=== PATIENT | male | born 1965 | race Caucasian/White ===

== ENCOUNTER 2025-02-19 12:19 | Emergency (ER) | payer BC, SELFPAY ==
[2025-02-19 12:24] VITALS: BP 159/79; PULSE 72; TEMP 37.3; O2SAT 98; BMI 36.9
--- NOTE | 2025-02-19 12:31 | CT_ITS ---
[address] [address] Patient Name: OSVALDO CONTI MRN: [id number] date: 1965 Sex: M Assigned Patient Location: ER Current Patient Location: ER Accession/Order Number: [id number] Exam Date: 02/19/2025 13:05 Report Date: 02/19/2025 13:13 At the request of: DONALDO FERREIRA NP Procedure: CT abdomen pelvis wo con CT abdomen pelvis wo con 02/19/2025 12:53 PM SIGNS AND SYMPTOMS: Left flank pain TECHNIQUE: Multidetector ct axial images of the abdomen and pelvis were obtained without IV contrast. Multiplanar reformats were performed and reviewed to further define anatomy and possible pathology. CT was performed with one or more of the following dose reduction techniques: Automated exposure control, adjustment of the mA and/or kV according to patient size, or use of iterative reconstruction technique. COMPARISON: None. FINDINGS: Lower Chest: Atherosclerotic changes are noted in the coronary arteries and thoracic aorta. ABDOMEN: Liver: Within normal limits. Bile Ducts: Normal caliber. Gallbladder: No calcified gallstones. Normal caliber wall. Pancreas: Within normal limits. Spleen: Within normal limits. Adrenals: Within normal limits. Kidneys: Within normal limits. Pelvis: Reproductive Organs: No pelvic masses. Ureters: Within normal limits. Bladder: Within normal limits. Bowel: Uncomplicated colonic diverticula are noted. There is no evidence of bowel obstruction. There is a normal appendix in the right lower quadrant. Mesenteric Lymph Nodes: No enlarged mesenteric lymph nodes. Peritoneum: No ascites or free air, no fluid collection. Vessels: Atherosclerotic changes are noted in the abdominal aorta and its branches. Retroperitoneum: Within normal limits. Abdominal Wall: Within normal limits. Bones: Degenerative changes are noted in the lumbar spine. Degenerative changes are noted in the hips and sacroiliac joints. CT/CT abdomen pelvis wo con IMPRESSION: No bowel obstruction or obstructive uropathy. Uncomplicated colonic diverticula are noted. No renal, ureteral, or bladder stones. Impression dictated by: Rufino Wesley M.D. 02/19/2025 1:13 PM Dictation Location: [place] [address] Electronically authenticated by: [id number] Y Date: 02/19/2025 13:13
--- NOTE | 2025-02-19 12:31 | ECG_ITS ---
[facility] Test Date: 2025-02-19 Pat Name: OSVALDO CONTI Department: Room: - Gender: Male Director Life: : 1965 Requested By: [id number] Order Number: [id number] Reading MD: GEETA WAITE Measurements Intervals Lane Rate: 69 P: 77 KS: 154 QRS: 95 QRSD: 96 T: 72 QT: 398 QTc: 417 Interpretive Statements 1100 Sinus rhythm RSR pattern in V1 7102 Moderate right axis deviation 9130 borderline ECG No previous ECG available for comparison Electronically Signed On 02-22-2025 16:21:11 EDT by GEETA WAITE
--- OUTSIDE RECORDS SUMMARY | 2025-02-19 12:32 | XMS_ITS | Encounter Summary ---
Author Organization [facility] Address [address] [place] [address] Care Team Providers Care Acetaldehyde Converter Operator Name Role Phone Unallocated, Noms Provider Primary Care Provi [facility] Encounter Details Date Type Department Care Team (Late st Contact Info) Description 02/07/2025 External Result Encounter [facility] External Department Unsolicited Vicente Queen MD [address] [address] Social History Tobacco Use Types Packs/Day Years Used Date Smoking Tobacco: Never Smokeless Tobacco: Never Alcohol Use Standard Drinks/Week Comments Never 0 (1 standard drink = 0.6 oz pur e alcohol) PHQ-2 Answer Date Recorded Patient Health Questionnaire-2 Score 0 02/01/2025 Sex and Gender Information Value Date Recorded Sex Assigned at Not on file Legal Sex Male 7:23 PM EDT Gender Identity Not on file Sexual Orientation Not on file documented as of this encounter Plan of Treatment Not on file documented as of this encounter Procedures Procedure Name Priority Date/Time Associated Diagnosis Comments THYROID ANTIBODIES TPO+TG AB Routine 02/07/2025 1:51 PM EDT THYROID STIMULATING IMMUNOGLOBULIN Routine 02/07/2025 1:51 PM EDT documented in this encounter Results * Thyroid stimulating immunoglobulin (02/07/2025 1:51 PM EDT) THYROID STIMULATING IMMUNOGLOB <0.10 0.00 - 0.55 02/09/2025 4:09 PM EDT [facility] Comment: Performed at: [address] [id number] R Developer: Alejandro Nixon MD, Phone: [phone] Other Topography unknown / Unknown 02/07/2025 1:51 PM EDT 02/07/2025 1:52 PM EDT Vicente Queen MD LAB BLOOD ORDERABLES Final R esult Performing Organization Address City/[facility]/ZIP Co de Phone Number [facility] [address] [place] [address], * THYROID ANTIBODIES TPO+TG AB (02/07/2025 1:51 PM EDT) Pathologist [facility] THYROID PEROXIDASE ANTIBODIES <9 0 - 34 02/08/2025 3:08 PM EDT [facility] ANTITHYROGLOBULIN AB 1.3 0.0 - 0.9 0 08/2024 3:08 PM EDT [facility] Comment: Thyroglobulin Antibody measured by Urmila Vu Methodology It should be noted that the presence of thyroglobulin antibodies may not be pathogenic nor diagnostic, especially at very low levels. The assay lehr stripper has found that four percent of individuals without evidence of thyroid disease or autoimmunity will have positive TgAb levels up to 4 IU/mL. Performed at: [address] [id number] R Developer: Macho Kapoor PhD, Phone: [phone] Other Topography unknown / Unknown 02/07/2025 1:51 PM EDT 02/07/2025 1:52 PM EDT Vicente Queen MD [facility] Final Result Performing Organization Address [facility] Co de Phone Number [facility] [address] [place] [address], documented in this encounter Visit Diagnoses Not on filedocumented in this encounter Care Teams Acetaldehyde Converter Operator Relationship Specialty Start Date End Date Unallocated, Noms Provider, MD Mahesh AMAYA [place], [place] [id number] PCP - General Family Medicine 05/24/24 documented as of this encounter
--- OUTSIDE RECORDS SUMMARY | 2025-02-19 12:32 | XMS_ITS | Encounter Summary ---
Author Organization [facility] Address [address] [place] [address] Care Team Providers Care Prototype Deicer Assembler Name Role Phone Vicente Queen MD Unavailable [phone] Vicente Queen MD Primary Care Provider [phone] Unallocated, Noms Provider Primary Care Provi steffen Encounter Details Date Type Department Care Team (Late st Contact Info) Description 04/03/2023 Abstract [facility] [address] [place] [id number] Beba Rodgers MD Social History Tobacco Use Types Packs/Day Years Used Date Smoking Tobacco: Never Assessed Sex and Gender Information Value Date Recorded Sex Assigned at Not on file Legal Sex Male 7:23 PM EDT Gender Identity Not on file Sexual Orientation Not on file documented as of this encounter Plan of Treatment Not on file documented as of this encounter Visit Diagnoses Not on filedocumented in this encounter Care Teams Prototype Deicer Assembler Relationship Specialty Start Date End Date Vicente Queen MD 112 [facility] [address] [place] [address] PCP - Medical [place] [employer] 01/09/23 10/18/23 Vicente Queen MD [address] [address] PCP - General Family Medicine 12/17/22 05/23/24 Unallocated, Noms Estevan, [place] [address] PCP - General Family Medicine 05/24/24 documented as of this encounter
--- OUTSIDE RECORDS SUMMARY | 2025-02-19 12:32 | XMS_ITS | Encounter Summary ---
Author Organization [facility] Address [address] [place] [address] Care Team Providers Care Acute Specialist Name Role Phone Unallocated, Noms Provider Primary Care Provi steffen Reason for Visit * Reason Onset Date Comments Results 02/14/2025 Encounter Details Date Type Department Care Team (Late st Contact Info) Description 02/14/2025 Telephone [facility] 100 [address] [facility] [address] [place] [address] Vicente Queen MD 112 [facility] [address] [place] [address] Results Social History Tobacco Use Types Packs/Day Years [...] on file documented as of this encounter Miscellaneous Notes * Telephone Encounter - Micki Sevilla MA - 02/15/2025 3:38 PM EDT UA was negative. Richard said according to the company her insurance is affective but she is still waiting to hear back on numbers and who is covered etc. She stated that as soon as she hears she will give the office a call so [facility] can order testing. * Telephone Encounter - Micki Sevilla MA - 02/14/2025 3:40 PM EDT Called over to [facility]. The chemical laboratory technician looked into the orders and the system as this was all drawn in the outpatient lab outside the hospital. She stated that it was cancelled by the person who bisi it because they stated it was the wrong test ordered but then she asked me to hold so she could see what was going on. She came back on and asked if we were looking for the path review. I advised her yes. She stated the assistant technician was looking through the slides to see if it was still there. She put me back on hold and then came back and stated that the tech found the slide, she was going to reorderthe test and have the pathologist read it tomorrow. * Telephone Encounter - Meseret Tyler - 02/14/2025 2:57 PM EDT Vipul called asking about his lab results. He states he continues to feel bad ,worse than when he wasin for his visit. He also wanted to ask if Dr. Queen thought it may be low testosterone? He asks for a call back when results are in. documented in this encounter Plan of Treatment Not on file documented as of this encounter Visit Diagnoses Not on filedocumented in this encounter Care Teams Acute Specialist Relationship Specialty Start Date End Date Unallocated, Noms Provider, [place] [address] PCP - General Family Medicine 05/24/24 documented as of this encounter
--- OUTSIDE RECORDS SUMMARY | 2025-02-19 12:32 | XMS_ITS | Clinical Summary ---
Author Organization [facility] Address [address] [place] [address] Care Team Providers Care Polisher And Buffer Name Role Phone Unallocated, N[facility] Provider Primary Care Provi steffen Allergies No known active allergies Medications nebivolol (Bystolic) 5 MG tablet Take 5 mg by mouth in the morning. 06/07/2024 Active amLODIPine (Norvasc) 10 MG tablet Take 10 mg by mouth Daily 01/26/2025 Active atorvastatin (Lipitor) 40 MG tablet Take 40 mg by mouth at bedtime 01/26/2025 Active dofetilide (Tikosyn) 500 MCG capsule Take 500 mcg by mouth in the morning and 500 mcg before bedtime. 01/26/2025 Active nitroglycerin (Nitrostat) 0.[address] 0.4 mg under the tongue every 5 (five) minutes if needed 01/26/2025 Active Xarelto 20 MG tablet Take 20 mg by mouth Daily 01/26/2025 Active ezetimibe (Zetia) 10 MG tablet Take 10 mg by mouth Daily Active Active Problems Problem Noted Date Diagnosed Date Abnormal neutrophil count 02/07/2025 Persistent atrial fibrillation 01/12/2024 Benign essential hypertension 01/12/2024 Benign prostatic hyperplasia 01/12/2024 Coronary arteriosclerosis in wainwright artery 01/11 CPAP (continuous positive airway pressure) depidania manuel 01/12/2024 Gastroesophageal reflux disease without esophagi tis 01/12/2024 H/O heart artery stent 01/12/2024 Hypertensive retinopathy 01/12/2024 Hypokalemia 01/12/2024 Ischemic optic neuropathy 01/12/2024 Left ventricular systolic dysfunction (LVSD) 10/2023 Mixed hyperlipidemia 01/12/2024 Myopia of both eyes 01/12/2024 Non morbid obesity due to excess calories 2023 Nuclear senile cataract 01/12/2024 Obstructive sleep apnea syndrome 01/12/2024 Basal cell carcinoma (BCC) of skin of face 08/27 Pseudopolyp of sigmoid colon without complicatio n 01/28/2018 Resolved Problems Problem Noted Date Diagnosed Date Resolved Date Atrial fibrillation with RVR 01/12/2024 02/03/2025 Encounters Date Type Department Care Team Description 02/14/2025 Telephone [facility] [address] [facility] [address] [place] [address] Vicente Queen MD Results 02/07/2025 External Result Encounter [facility] External Department Unsolicited Vicente Queen MD 02/07/2025 External Result Encounter [facility] External Department Unsolicited Vicente Queen MD 02/07/2025 External Result Encounter [facility] External Department Unsolicited Vicente Queen MD 02/07/2025 Orders Only [facility] [address] [facility] [address] [place] [address] Vicente Queen MD Other elevated white blood cell (WBC) count (Primary Dx); Abnormal thyroid function test; Chronic fatigue 02/03/2025 3:30 PM EDT Office Visit [facility] [address] [facility] [address] [place] [address] Vicente Queen MD Encounter for wellness examination in adult; Advance directive discussed with patient; Screening for diabetes mellitus (DM); Mixed hyperlipidemia ; Non-compliant patient; Morbid (severe) obesity due to excess calories ([facility]); Essential (primary) hypertension ; Body mass index (BMI) 35.0-35.9, adult 02/03/2025 Bamboo flowsheet [facility] [address] [facility] [address] [place] [address] Vicente Queen MD 02/03/2025 Travel 02/02/2025 Orders Only [facility] [address] [facility] [address] [place] [address] Vicente Queen MD 02/02/2025 Results Follow-Up [facility] [address] [facility] [address] [place] [address] Vicente Queen MD 02/01/2025 2:00 PM EDT Office Visit [facility] [address] [place] [address] Vicente Queen MD Chronic fatigue (Primary Dx); Shortness of breath; Benign essential hypertension 02/01/2025 12:30 PM EDT Ancillary Procedure [facility] [address] [place] [address] Shortness of breath 02/01/2025 Bamboo flowsheet [facility] [address] [facility] [address] [place] [address] Vicente uQeen MD 02/01/2025 Travel 01/24/2025 Orders Only [facility] [address] [facility] [address] [place] [address] Roel Micki, [place] 12/01/2024 Clinisync Result Encounter [facility] External Department Unsolicited Provider, Generic External Data from Last 3 Months Immunizations Immunization Administration Dates Next Due Tdap 09/19/2023,05/16/2020 Social History Tobacco Use Types Packs/Day Years Used Date Smoking Tobacco: Never Smokeless Tobacco: Never Tobacco Cessation:Counseling Given: Yes Alcohol Use Standard Drinks/Week Comments Never 0 (1 standard drink = 0.6 oz pur e alcohol) PHQ-2 Answer Date Recorded Patient Health Questionnaire-2 Score 0 02/01/2025 Sex and Gender Information Value Date Recorded Sex Assigned at Not on file Legal Sex Male 7:23 PM EDT Gender Identity Not on file Sexual Orientation Not on file Last Filed Vital Signs Vital Sign Reading Time Taken Comments Blood Pressure 130/78 02/03/2025 3:26 PM EDT Pulse 73 02/03/2025 3:26 PM EDT Temperature - - Respiratory Rate - - Oxygen Saturation 97% 02/03/2025 3:26 PM EDT Inhaled Oxygen Concentration - - Weight 114 kg (251 lb) 02/03/2025 3:26 PM EDT Height 179.1 cm (5' 10.5 ) 02/03/2025 3:26 PM ED T Body Mass Index 35.51 02/03/2025 3:26 PM EDT Plan of Treatment Health Maintenance Due Date Last Done Comments CT Colonography 1964 FIT-DNA 1964 FIT 1964 FOBT 1965 Sigmoidoscopy 1964 Influenza Vaccine (#1) 2025 Colonoscopy 01/29/2028 01/28/2018 Colorectal Cancer Screening 01/29/2028 Procedures Procedure Name Priority Date/Time Associated Diagnosis Comments PATHOLOGIST SLIDE REVIEW ([facility]) Routine 02/07/2025 1:51 PM EDT THYROID STIMULATING IMMUNOGLOBULIN Routine 02/07/2025 1:51 PM EDT THYROID ANTIBODIES TPO+TG AB Routine 02/07/2025 1:51 PM EDT XR CHEST 2 VIEWS Routine 02/01/2025 3:54 PM EDT Shortness of breath T3, FREE Routine 02/01/2025 3:41 PM EDT TSH Routine 02/01/2025 3:41 PM EDT T4, FREE Routine 02/01/2025 3:41 PM EDT T3, TOTAL Routine 02/01/2025 3:41 PM EDT T3, REVERSE Routine 02/01/2025 3:41 PM EDT CBC (INCLUDES DIFF/PLT) Routine 02/01/2025 3:41 PM EDT Chronic fatigue Shortness of breath COMPREHENSIVE METABOLIC PANEL Routine 02/01/2025 3:41 PM EDT Chronic fatigue Benign essential hypertension NUCLEAR STRESS TEST EXERCISE (CARD) 12/01/2024 10:39 AM EDT COLONOSCOPY Routine 01/28/2018 12:00 PM EDT from Last 3 Months or Most Recently Relevant to Health Maintenance Results * THYROID ANTIBODIES TPO+TG AB (02/07/2025 1:51 PM EDT) THYROID PEROXIDASE ANTIBODIES <9 0 - 34 02/08/2025 3:08 PM EDT [facility] ANTITHYROGLOBULIN AB 1.3 0.0 - 0.9 08/2024 3:08 PM EDT [facility] Comment: Thyroglobulin Antibody measured by [employer] It should be noted that the presence of thyroglobulin antibodies may not be pathogenic nor diagnostic, especially at very low levels. The assay cut off machine helper has found that four percent of individuals without evidence of thyroid disease or autoimmunity will have positive TgAb levels up to 4 IU/mL. Performed at: [facility] [address] [id number] Curtain Feller Blindstitch: Macho Kapoor PhD, Phone: [phone] Other Topography unknown / Unknown 02/07/2025 1:51 PM EDT 02/07/2025 1:52 PM EDT Vicente Queen MD [facility] Final Result [facility] [address] [place], [place] [address] * PATHOLOGIST SLIDE REVIEW ([facility]) (02/07/2025 1:51 PM EDT) Pathologist [facility] PATHOLOGIST SLIDE REVIEW Ordered Path Review 02/14/2025 4:12 PM EDT [facility] Other Topography unknown / Unknown 02/07/2025 1:51 PM EDT 02/14/2025 3:44 PM EDT Vicente Queen MD LAB BLOOD ORDERABLES Final R esult Performing Organization Address [facility] Co de Phone Number [facility] [address] [place] [address], [facility] [address] [place] [address] * Thyroid stimulating immunoglobulin (02/07/2025 1:51 PM EDT) THYROID STIMULATING IMMUNOGLOB <0.10 0.00 - 0.55 02/09/2025 4:09 PM EDT [facility] Comment: Performed at: [facility] [address] [id number] Curtain Feller Blindstitch: Alejandro Nixon MD, Phone: [phone] Other Topography unknown / Unknown 02/07/2025 1:51 PM EDT 02/07/2025 1:52 PM EDT Vicente Queen MD LAB BLOOD ORDERABLES Final R esult Performing Organization Address [facility] Co de Phone Number [facility] [address] [place] [address], * XR chest 2 views (02/01/2025 3:54 PM EDT) Anatomical Region Laterality Modality Chest Radiographic Gracie ging 02/01/2025 7:17 PM EDT Narrative 02/01/2025 7:17 PM EDT XR CHEST 2 VIEWS Reason for exam: Shortness of breath for a few months Technique: PA and lateral view Findings: The heart size is normal. The pulmonary vascularity is unremarkable. The lungs are fully expanded and clear. No pleural abnormalities are seen. No evidence of mediastinal or hilar enlargement. The osseous structures are intact. No soft tissue abnormalities are seen. IMPRESSION: Normal chest x-ray. Dictated on: 02/01/2025 5:06 PM This report has been electronically signed and approved by the interpreting Radiologist. Procedure Note Rebel Abebe MD - 02/01/2025 XR CHEST 2 VIEWS Reason for exam: Shortness of breath for a few months Technique: PA and lateral view Findings: The heart size is normal. The pulmonary vascularity is unremarkable. Thelungs are fully expanded and clear. No pleural abnormalities are seen.No evidence of mediastinal or hilar enlargement. The osseous structuresare intact. No soft tissue abnormalities are seen. IMPRESSION: Normal chest x-ray. Dictated on: 02/01/2025 5:06 PM This report has been electronically signed and approved by theinterpreting Radiologist. us Vicente Queen MD IMG XR PROCEDURES Final Resu lt * (ABNORMAL) CBC and differential (02/01/2025 3:41 PM EDT) WHITE BLOOD CELL COUNT 13.0(H) 3.8 - 10.8 Thousand/ uL [facility] RED BLOOD CELL COUNT 4.43 4.20 - 5.80 Million/u L [facility] HEMOGLOBIN 14.8 13.2 - 17.1 g/dL [facility] HEMATOCRIT 43.4 38.5 - 50.0 % [facility] MCV 98.0 80.0 - 100.0 fL [facility] MCH 33.4(H) 27.0 - 33.0 pg [facility] MCHC 34.1 32.0 - 36.0 g/dL [facility] Comment: For adults, a slight decrease in the calculated MCHC value (in the range of 30 to 32 g/dL) is most likely not clinically significant; however, it should be interpreted with caution in correlation with other red cell parameters and the patient's clinical condition. RDW 11.6 11.0 - 15.0 % [facility] PLATELET COUNT 236 140 - 400 Thousand/ uL [facility] MPV 11.0 7.5 - 12.5 fL [facility] ABSOLUTE NEUTROPHILS 10,049(H) 1,500 - 7,800 cells/uL [facility] ABSOLUTE BAND NEUTROPHILS CANCELED 0 - 750 cells/uL [facility] Comment:Result canceled by t he ancillary. ABSOLUTE METAMYELOCYTES CANCELED 0 cells/uL [facility] Comment:Result canceled by t he ancillary. ABSOLUTE MYELOCYTES CANCELED 0 cells/uL [facility] Comment:Result canceled by t he ancillary. ABSOLUTE PROMYELOCYTES CANCELED 0 cells/uL [facility] Comment:Result canceled by t he ancillary. ABSOLUTE LYMPHOCYTES 1,781 850 - 3,900 cells/uL [facility] ABSOLUTE MONOCYTES 949 200 - 950 cells/uL [facility] ABSOLUTE EOSINOPHILS 169 15 - 500 cells/uL [facility] ABSOLUTE BASOPHILS 52 0 - 200 cells/uL [facility] ABSOLUTE BLASTS CANCELED 0 cells/uL [facility] Comment:Result canceled by t he ancillary. ABSOLUTE NUCLEATED RBC CANCELED 0 cells/uL [facility] Comment:Result canceled by t he ancillary. NEUTROPHILS 77.3 % [facility] BAND NEUTROPHILS CANCELED % [facility] Comment:Result canceled by t he ancillary. METAMYELOCYTES CANCELED % [facility] Comment:Result canceled by t he ancillary. CIPROFLOXICIN CANCELED % [facility] Comment:Result canceled by t he ancillary. PROMYELOCYTES CANCELED % [facility] Comment:Result canceled by t he ancillary. LYMPHOCYTES 13.7 % [facility] REACTIVE LYMPHOCYTES CANCELED 0 - 10 % [facility] Comment:Result canceled by t he ancillary. MONOCYTES 7.3 % [facility] EOSINOPHILS 1.3 % [facility] BASOPHILS 0.4 % [facility] BLASTS CANCELED % [facility] Comment:Result canceled by t he ancillary. NUCLEATED RBC CANCELED 0 /100 WBC [facility] Comment:Result canceled by t he ancillary. COMMENT(S) CANCELED [facility] Comment:Result canceled by t he ancillary. Blood Venous blood specimen / Unknown 02/01/2025 3:41 PM EDT 02/01/2025 3:42 PM EDT Narrative Resulting Agency Comment Performing Organization Information Site ID: QPT Name: [facility] Address: [address] [place] [address], [address] [place] [phone] Director: Samir Glass MD Vicente Queen MD LAB BLOOD ORDERABLES Final R esult [facility] * (ABNORMAL) T3, reverse (02/01/2025 3:41 PM EDT) T3 REVERSE, LC/MS/MS 30(H) 8 - 25 ng/dL [facility] Comment: This test was developed and its analytical performance characteristics have been determined by [facility] [place], [place]. It has not been cleared or approved by the U.S. Food and Drug Administration. This assay has been validated pursuant to the CLIA regulations and is used for clinical purposes. 02/01/2025 3:41 PM EDT 02/01/2025 3:42 PM EDT Narrative Resulting Agency Comment Performing Organization Information Site ID: AMD Name: [facility] [place] Address: [address] [place] [address] [place] [phone] Director: Luc Morin M.D.,PhD Vicente Queen MD LAB BLOOD ORDERABLES Final R esult Performing Organization Address [facility] Co de Phone Number [facility] * T3, free (02/01/2025 3:41 PM EDT) T3, FREE 3.8 2.3 - 4.2 pg/mL [facility] 02/01/2025 3:41 PM EDT 02/01/2025 3:42 PM EDT Narrative Resulting Agency Comment Performing Organization Information Site ID: QPT Name: [facility] Address: [address] [place] [address], [address] [place] [phone] Director: Samir Glass MD Vicente Queen MD LAB BLOOD ORDERABLES Final R esult Performing Organization Address [facility] de Phone Number [facility] * T3 (02/01/2025 3:41 PM EDT) T3, TOTAL 117 76 - 181 ng/dL [facility] 02/01/2025 3:41 PM EDT 02/01/2025 3:42 PM EDT Narrative Resulting Agency Comment Performing Organization Information Site ID: QPT Name: [facility] Address: [address] [place] [address], [address] [place] [phone] Director: Samir Glass MD Vicente Queen MD LAB BLOOD ORDERABLES Final R esult Performing Organization Address [facility] de Phone Number [facility] * TSH (02/01/2025 3:41 PM EDT) TSH 0.91 0.40 - 4.50 mIU/L [facility] 02/01/2025 3:41 PM EDT 02/01/2025 3:42 PM EDT Narrative Resulting Agency Comment Performing Organization Information Site ID: QPT Name: [facility] Address: [address] [place] [address], [address] [place] [phone] Director: Samir Glass MD Vicente Queen MD LAB BLOOD ORDERABLES Final R esult Performing Organization Address [facility] de Phone Number [facility] * T4, free (02/01/2025 3:41 PM EDT) T4, FREE 1.7 0.8 - 1.8 ng/dL [facility] 02/01/2025 3:41 PM EDT 02/01/2025 3:42 PM EDT Narrative Resulting Agency Comment Performing Organization Information Site ID: QPT Name: [facility] Address: [address] [place] [address], [address] [place] [phone] Director: Samir Glass MD Vicente Queen MD LAB BLOOD ORDERABLES Final R esult Performing Organization Address [facility] de Phone Number [facility] * Comprehensive metabolic panel (02/01/2025 3:41 PM EDT) [facility] Glucose 84 65 - 99 mg/dL [facility] Comment: Fasting reference interval BUN 14 7 - 25 mg/dL [facility] Creatinine 1.11 0.70 - 1.35 mg/dL [facility] EGFR 76 > OR = 60 mL/min/1. 73m2 [facility] BUN/CREATININE RATIO SEE NOTE: 6 - 22 (calc) [facility] Comment: Not Reported: BUN and Creatinine are within reference range. Sodium 137 135 - 146 mmol/L [facility] Potassium, Bld 4.2 3.5 - 5.3 mmol/L [facility] Chloride 103 98 - 110 mmol/L [facility] Carbon Dioxide 25 20 - 32 mmol/L [facility] Calcium 9.5 8.6 - 10.3 mg/dL [facility] PROTEIN, TOTAL 6.9 6.1 - 8.1 g/dL [facility] ALBUMIN 4.3 3.6 - 5.1 g/dL [facility] GLOBULIN 2.6 1.9 - 3.7 g/dL (calc) [facility] ALBUMIN/GLOBULIN RATIO 1.7 1.0 - 2.5 (calc) [facility] BILIRUBIN, TOTAL 1.1 0.2 - 1.2 mg/dL [facility] ALKALINE PHOSPHATASE 70 35 - 144 U/L [facility] AST 24 10 - 35 U/L [facility] ALT 30 9 - 46 U/L [facility] Blood Venous blood specimen / Unknown 02/01/2025 3:41 PM EDT 02/01/2025 3:42 PM EDT Narrative Resulting Agency Comment Performing Organization Information Site ID: QPT Name: [facility] Address: [address] [place] [address], [address] [place] [phone] Director: Samir Glass MD Vicente Queen MD LAB BLOOD ORDERABLES Final R esult [facility] * NUCLEAR STRESS TEST EXERCISE (CARD) (12/01/2024 10:39 AM EDT) Anatomical Region Laterality Modality Radiographic Gracie ging 12/01/2024 10:3 9 AM EDT Narrative 12/02/2024 1:18 PM EDT Source Facility: [facility] Interpreted By: Marie Rodgers and Giannuzzi Michael STUDY: MYOCARDIAL PERFUSION STRESS TEST WITH LEXISCAN Performing facility: [facility], [address] [place] [address], [address] Provider: Marie Rodgers MD, FACC PCP: Dr. Ame Queen Supervising provider: Marie Rodgers MD, FACC INDICATION: Signs/Symptoms:angina, history of UT. ,I25.10 Atherosclerotic heart disease of wainwright coronary artery without angina pectoris,I20.9 Angina pectoris, unspecified,I25.5 Ischemic cardiomyopathy,I21.9 Acute myocardial infarction, unspecified HISTORY: Gender: M; Age: 59 y/o ; Height: HT 172.7 cm cm; Weight: WT 119.477 kg kg. High Cholesterol; CAD; Previous UT 2008; HTN; Arrhythmias;A-fib Chest Pain; SOB; ICM CHF Quit smoking 25 years ago. Cardiac catheterization on 2008. PTCA on 2008. COMPARISON: Previous nuclear testing completed at [facility]. ACCESSION NUMBER(S): [id number] ORDERING CLINICIAN: MARIE RODGERS TECHNIQUE: TWO DAY protocol. Stress injection: Date:12-01-24, 31.7 mCi of Myoview IV 20 seconds after rapid injection of Lexiscan. Rest injection: Date: 12-02-24, 33.5 mCi of Myoview IV at rest. The patient had a rapid injection of 0.4 mg of Lexiscan IV over 10 seconds. Imaging was performed by gated tomographic technique. Reason for Lexiscan: dizziness/unsteady/fall risk STRESS TEST DATA: Resting heart rate was 67 BPM. Resting blood pressure was 128/72 mmHg. Peak blood pressure was 116/68 mmHg. Peak heart rate was 75 BPM. TEST TERMINATED DUE TO: Protocol completed FINDINGS: STRESS TEST RESULTS: Resting electrocardiogram revealed sinus rhythm, septal myocardial infarction of undetermined age. There were no significant ischemic ECG changes or dysrhythmias. The patient did not have chest pains/symptoms during procedure. There was a normal recovery phase. IMAGING RESULTS: Image quality was good. Rest and stress tomographic images were reviewed and revealed normal perfusion without evidence of ischemia, myocardial infarction, or left ventricular dilatation with stress. Overall left ventricular systolic function appeared to be normal without regional wall motion abnormalities. Ejection fraction was 53%. TID is 1.14 and is normal. There was evidence of inferoapical attenuation artifact. IMPRESSION: Normal Lexiscan Myoview cardiac perfusion stress test. No evidence of ischemia or myocardial infarction by perfusion imaging. Normal left ventricular systolic function, ejection fraction 53%. When compared to a study from 2021, the previous study reported probable small area of apical ischemia with reduced ejection fraction at 37% in the context of atrial fibrillation, present study reveals normal ejection fraction at 53% with no atrial fibrillation. The present study revealed inferoapical attenuation artifact. Whether these 2 defects are to be considered the same is undetermined. Please correlate clinically. Signed by: Marie Rodgers 12/02/2024 1:18 PM Dictation workstation: [id number] Procedure Note Radiology, Radiologist, - 12/02/2024 Source Facility: [facility] Interpreted By: Marie Rodgers and Giannuzzi Michael STUDY: MYOCARDIAL PERFUSION STRESS TEST WITH LEXISCAN Performing facility: [facility], [address] [place] [address], [address], [place] [address] [facility] Provider: Marie Rodgers MD, FACC PCP: Dr. Ame Queen Supervising provider: Marie Rodgers MD, [facility] INDICATION: Signs/Symptoms:angina, history of UT. ,I25.10 Atherosclerotic heart disease of wainwright coronary artery without angina pectoris,I20.9 Angina pectoris, unspecified,I25.5 Ischemic cardiomyopathy,I21.9 Acute myocardial infarction, unspecified HISTORY: Gender: M; Age: 59 y/o ; Height: HT 172.7 cm cm; Weight: WT 119.477 kg kg. High Cholesterol; CAD; Previous UT 2008; HTN; Arrhythmias;A-fib Chest Pain; SOB; ICM CHF Quit smoking 25 years ago. Cardiac catheterization on 2008. PTCA on 2008. COMPARISON: Previous nuclear testing completed at [facility]. ACCESSION NUMBER(S): [id number] ORDERING CLINICIAN: MARIE RODGERS TECHNIQUE: TWO DAY protocol. Stress injection: Date:12-01-24, 31.7 mCi of Myoview IV 20 seconds after rapid injection of Lexiscan. Rest injection: Date: 12-02-24, 33.5 mCi of Myoview IV at rest. The patient had a rapid injection of 0.4 mg of Lexiscan IV over 10 seconds. Imaging was performed by gated tomographic technique. Reason for Lexiscan: dizziness/unsteady/fall risk STRESS TEST DATA: Resting heart rate was 67 BPM. Resting blood pressure was 128/72 mmHg. Peak blood pressure was 116/68 mmHg. Peak heart rate was 75 BPM. TEST TERMINATED DUE TO: Protocol completed FINDINGS: STRESS TEST RESULTS: Resting electrocardiogram revealed sinus rhythm, septal myocardial infarction of undetermined age. There were no significant ischemic ECG changes or dysrhythmias. The patient did not have chest pains/symptoms during procedure. There was a normal recovery phase. IMAGING RESULTS: Image quality was good. Rest and stress tomographic images were reviewed and revealed normal perfusion without evidence of ischemia, myocardial infarction, or left ventricular dilatation with stress. Overall left ventricular systolic function appeared to be normal without regional wall motion abnormalities. Ejection fraction was 53%. TID is 1.14 and is normal. There was evidence of inferoapical attenuation artifact. IMPRESSION: Normal Lexiscan Myoview cardiac perfusion stress test. No evidence of ischemia or myocardial infarction by perfusion imaging. Normal left ventricular systolic function, ejection fraction 53%. When compared to a study from 2021, the previous study reported probable small area of apical ischemia with reduced ejection fraction at 37% in the context of atrial fibrillation, present study reveals normal ejection fraction at 53% with no atrial fibrillation. The present study revealed inferoapical attenuation artifact. Whether these 2 defects are to be considered the same is undetermined. Please correlate clinically. Signed by: Marie Rodgers 12/02/2024 1:18 PM Dictation workstation: [id number] us Generic External Data Provider IMG XR PROCEDURES Final Result * Colonoscopy (01/28/2018 12:00 PM EDT) Anatomical Region Laterality Modality Endoscopy 01/28/2018 12:0 0 PM EDT Narrative 01/28/2018 12:00 PM EDT PERFORMED AT [facility] LOCATION:[id number] Abnormal Procedure Note CONVERSION, GENERIC - 12/25/2022 PERFORMED AT [facility] LOCATION:[id number] Abnormal Vicente Queen MD ENDOSCOPY PROCEDURE ORDERABL ES Final Result from Last 3 Months or Most Recently Relevant to Health Maintenance Insurance [employer] Care Teams Polisher And Buffer Relationship Specialty Start Date End Date Unallocated, Noms Provider, [address] [place] [address] PCP - General Family Medicine 05/24/24
--- OUTSIDE RECORDS SUMMARY | 2025-02-19 12:32 | XMS_ITS | Encounter Summary ---
Author Organization [facility] Address [address] [place] [address] Care Team Providers Care Log Stacker Operator Name Role Phone Unallocated, Noms Provider Primary Care Provi steffen Encounter Details Date Type Department Care Team (Late st Contact Info) Description 01/24/2025 Orders Only [facility] [address] [place] [address] [facility] [place] Social History Tobacco Use Types Packs/Day Years [...] on filedocumented in this encounter Care Teams Log Stacker Operator Relationship Specialty Start Date End Date Unallocated, Noms Provider[place] [address] PCP - General Family Medicine 05/24/24 documented as of this encounter
--- OUTSIDE RECORDS SUMMARY | 2025-02-19 12:32 | XMS_ITS | Encounter Summary ---
Author Organization [facility] Address [address] [place] [address] Care Team Providers Care Counter Sales Person Name Role Phone Vicente Queen MD Unavailable [phone] Vicente Queen MD Primary Care Provider [phone] Unallocated, Noms Provider Primary Care Provi steffen Encounter Details Date Type Department Care Team (Late st Contact Info) Description 03/31/2023 Abstract [facility] [address] [place] [phone] Beba Rodgers MD Social History Tobacco Use [...] on filedocumented in this encounter Care Teams Counter Sales Person Relationship Specialty Start Date End Date Vicente Queen MD 112 [facility] 100 [place] [address] PCP - Medical [place] [employer] 01/09/23 10/18/23 Vicente Queen MD [address] [address] PCP - General Family Medicine 12/17/22 05/23/24 Unallocated, Noms Estevan, [place] [address] PCP - General Family Medicine 05/24/24 documented as of this encounter
--- OUTSIDE RECORDS SUMMARY | 2025-02-19 12:32 | XMS_ITS | Encounter Summary ---
Author Organization [facility] Address [address] [place] [address] Care Team Providers Care Bend Sorter Name Role Phone Unallocated, Noms Provider Primary Care Provi steffen Encounter Details Date Type Department Care Team (Late st Contact Info) Description 02/07/2025 External Result Encounter [facility] External Department Unsolicited Vicente Queen MD [address] [address] Social History Tobacco Use Types Packs/Day Years [...] Date/Time Associated Diagnosis Comments PATHOLOGIST SLIDE REVIEW [place] Routine 02/07/2025 1:51 PM EDT documented in this encounter Results * PATHOLOGIST SLIDE REVIEW [place] (02/07/2025 1:51 PM EDT) PATHOLOGIST SLIDE REVIEW Ordered Path Review 02/14/2025 4:12 PM EDT [facility] Other Topography unknown / Unknown 02/07/2025 1:51 PM EDT 02/14/2025 3:44 PM EDT Vicente Queen MD LAB BLOOD ORDERABLES Final R esult [facility] [address] [place] [address], [facility] [address] [place] [address] documented in this encounter Visit Diagnoses Not on filedocumented in this encounter Care Teams Bend Sorter Relationship Specialty Start Date End Date Unallocated, Noms Provider, [address] [place] [address] PCP - General Family Medicine 05/24/24 documented as of this encounter
--- OUTSIDE RECORDS SUMMARY | 2025-02-19 12:32 | XMS_ITS | Encounter Summary ---
Author Organization [facility] Address [address] [place] [address] Care Team Providers Care Import Coordinator Name Role Phone Unallocated, Noms Provider Primary Care Provi steffen Reason for Visit * Reason Onset Date Comments Results 02/02/2025 Encounter Details Date Type Department Care Team (Late st Contact Info) Description 02/02/2025 Results Follow-Up [facility] [address] [place] [address] Vicente Queen MD 112 [facility] [address] [place] [address] Social History Tobacco Use Types Packs/Day Years [...] Telephone Encounter - Micki Sevilla MA - 02/02/2025 9:07 AM EDT Patient was notified and verbalized understanding. He/She knows to contact office with any further questions. * Telephone Encounter - Micki Sevilla MA - 02/02/2025 9:06 AM EDT ----- Message from Vicente Queen MD sent at 02/02/2025 7:52 AM EDT ----- * Telephone Encounter - Vicente Queen MD - 02/02/2025 7:51 AM EDT Notify him I reviewed the x-ray and the x-ray report. Is essentially normal x-ray. There is no specific evidence of any lung disease or tumors. 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 We will await his lab work. documented in this encounter Plan of Treatment Not on file documented as of this encounter Visit Diagnoses Not on filedocumented in this encounter Care Teams Import Coordinator Relationship Specialty Start Date End Date Unallocated, Noms Provider, [address] [place] [address] PCP - General Family Medicine 05/24/24 documented as of this encounter
--- OUTSIDE RECORDS SUMMARY | 2025-02-19 12:33 | XMS_ITS | Encounter Summary ---
Author Organization [facility] Address [address] [place] [address] Care Team Providers Care Soda Tester Name Role Phone Unallocated, Noms Provider [facility] Encounter Details Date Type Department Care Team (Late st Contact Info) Description 02/07/2025 External Result Encounter [facility] External Department Unsolicited Vicente Queen MD [address] [address] Social History Tobacco Use Types Packs/Day Years [...] as of this encounter Plan of Treatment Pending Results Name Type Priority Associated Diagnoses Date /Time CBC auto differential Lab Routine 1:51 PM EDT Sedimentation rate, automated Lab Routine 02/07/2025 1:51 PM EDT documented as of this encounter Visit Diagnoses Not on filedocumented in this encounter Care Teams Soda Tester Relationship Specialty Start Date End Date Unallocated, [place] [address] PCP - General Family Medicine 05/24/24 documented as of this encounter
--- OUTSIDE RECORDS SUMMARY | 2025-02-19 12:33 | XMS_ITS | Encounter Summary ---
Author Organization [facility] Address [address] [place] [address] Phone Care Team Providers Care External Grinder Tool Name Role Phone Vicente Queen MD Primary Care Provider Encounter Details Date Type Department Care Team (Late st Contact Info) Description 03/20/2024 Scanned Document [facility] [address] [place] [phone] Scanning, Generic Provider Social History Tobacco Use Types Packs/Day Years Used Date Smoking Tobacco: Former Cigarettes Q uit: 2000 Alcohol Use Standard Drinks/Week Comments Yes 0 (1 standard drink = 0.6 oz pur e alcohol) 2-3 drinks daily Sex and Gender Information Value Date Recorded Sex Assigned at Not on file Legal Sex Male 3:36 AM EST Gender Identity Not on file Sexual Orientation Not on file documented as of this encounter Plan of Treatment Upcoming Encounters Date Type Department Care Team (Late st Contact Info) Description 04/22/2025 2:20 PM EDT Office Visit [facility] [address] [facility] [address] [place] [address] Joseph Rodgers MD 703 [facility] [address] [place] [address] documented as of this encounter Procedures Procedure Name Priority Date/Time Associated Diagnosis Comments OUTSIDE IMAGING SCAN 03/20/2024 documented in this encounter Results * OUTSIDE IMAGING SCAN (03/20/2024) Anatomical Region Laterality Modality Other Narrative 03/20/2024 Ordered by an unspecified provider. us Generic Provider Scanning OUTSIDE SCAN Final Result documented in this encounter Visit Diagnoses Not on filedocumented in this encounter Care Teams External Grinder Tool Relationship Specialty Start Date End Date Vicente Queen MD [address] [place] [address] PCP - General 07/02/21 documented as of this encounter
--- OUTSIDE RECORDS SUMMARY | 2025-02-19 12:33 | XMS_ITS | Encounter Summary ---
Author Organization [facility] Address [address] [place] [address] Phone Care Team Providers Care Director Camp Name Role Phone Vicente Queen MD Primary Care Provider Encounter Details Date Type Department Care Team (Late st Contact Info) Description 03/31/2023 Scanned Document [facility] [address] [place] [address] Conversion, Onbase Social History Tobacco Use Types Packs/Day Years [...] Description 04/22/2025 2:20 PM EDT Office Visit [facility] [address] [facility] [address] [place] [address] Joseph Rodgers MD [address] [facility] [address] [place], [place] [phone] documented as of this encounter Visit Diagnoses Not on filedocumented in this encounter Care Teams Director Camp Relationship Specialty Start Date End Date Vicente Queen MD [address] [place] [phone] PCP - General 07/02/21 documented as of this encounter
--- OUTSIDE RECORDS SUMMARY | 2025-02-19 12:33 | XMS_ITS | Encounter Summary ---
Author Organization [facility] Address [address] [place] [address] Phone Care Team Providers Care Research Analyst Name Role Phone Vicente Queen MD Primary Care Provider Encounter Details Date Type Department Care Team (Late st Contact Info) Description 05/28/2019 Orders Only [facility] [address] [place] [address] Conversion, Onbase Social History Tobacco Use Types [...] Description 04/22/2025 2:20 PM EDT Office Visit [facility] [address] [facility] [address] [place] [address] Joseph Rodgers MD [address] [facility] [address] [place] [address] Scheduled Orders Name Type Priority Associated Diagnoses Orde r Schedule OUTSIDE LAB SCAN Lab Ordered: 05/28/2019 documented as of this encounter Visit Diagnoses Not on filedocumented in this encounter Care Teams Research Analyst Relationship Specialty Start Date End Date Vicente Queen MD [address] [place] [phone] PCP - General 07/02/21 documented as of this encounter
--- OUTSIDE RECORDS SUMMARY | 2025-02-19 12:33 | XMS_ITS | Encounter Summary ---
Author Organization [facility] Address [address] [place] [address] Phone Care Team Providers Care Case Advocate Name Role Phone Vicente Queen MD Primary Care Provider Encounter Details Date Type Department Care Team (Late st Contact Info) Description 03/24/2023 Scanned Document [facility] [address] [place] [address] Conversion, Onbase Social History Tobacco Use Types [...] Description 04/22/2025 2:20 PM EDT Office Visit [facility] [address] [facility] [address] [place] [address] Joseph Rodgers MD 7[address] [facility] [address] [place], [place] [phone] documented as of this encounter Procedures Procedure Name Priority Date/Time Associated Diagnosis Comments OUTSIDE GENERIC TESTING 03/24/2023 documented in this encounter Results * OUTSIDE GENERIC TESTING (03/24/2023) Anatomical Region Laterality Modality Other Narrative 03/24/2023 Ordered by an unspecified provider. us Onbase Conversion OUTSIDE SCAN Final Result documented in this encounter Visit Diagnoses Not on filedocumented in this encounter Care Teams Case Advocate Relationship Specialty Start Date End Date Vicente Queen MD [address] [place] [phone] PCP - General 07/02/21 documented as of this encounter
--- OUTSIDE RECORDS SUMMARY | 2025-02-19 12:33 | XMS_ITS | Encounter Summary ---
Author Organization [facility] Address [address] [place] [address] Phone Care Team Providers Care Copy Operator Name Role Phone Vicente Queen MD Primary Care Provider Encounter Details Date Type Department Care Team (Late st Contact Info) Description 09/29/2024 Scanned Document [facility] [address] [place] [phone] Scanning, Generic Provider Social History Tobacco Use Types Packs/Day Years Used Date Smoking Tobacco: Former Cigarettes Q uit: 2000 Smokeless Tobacco: Never Alcohol Use Standard Drinks/Week Comments Yes 0 (1 standard drink = 0.6 oz pur e alcohol) 2-3 drinks daily PHQ-2 Answer Date Recorded Patient Health Questionnaire-2 Score 0 08/16/2024 Sex and Gender Information Value Date Recorded Sex Assigned at Not on file Legal Sex Male 3:36 AM EST Gender Identity Not on file Sexual Orientation Not on file documented as of this encounter Plan of Treatment Upcoming Encounters Date Type Department Care Team (Late st Contact Info) Description 04/22/2025 2:20 PM EDT Office Visit [place] [id number] [facility] [address] [place] [address] Joseph Rodgers MD 703 [facility] [address] [place] [address] documented as of this encounter Visit Diagnoses Not on filedocumented in this encounter Additional Health Concerns Assessment Noted Time A fall risk assessment has been complete d for the patient 08/16/2024 10:51 AM EST documented as of this encounter Care Teams Copy Operator Relationship Specialty Start Date End Date Vicente Queen MD [address] [place] [phone] PCP - General 07/02/21 documented as of this encounter
--- OUTSIDE RECORDS SUMMARY | 2025-02-19 12:33 | XMS_ITS | Clinical Summary ---
Author Organization [facility] Address [address] [place] [address] Phone Care Team Providers Care Lathe Set Up Person Name Role Phone Vicente Queen MD Primary Care Provider Allergies No known active allergies Medications aspirin 81 mg EC tablet Take 1 tablet (81 mg) by mouth 2 times a week. 2 Active losartan (Cozaar) 50 mg tabletIndications :Essential hypertension, benign Take 1 tablet (50 mg) by mouth 2 times a day. 180 tablet 3 4 Active dofetilide (Tikosyn) 500 mcg capsuleIndication s:Paroxysmal atrial fibrillation (Multi) Take 1 capsule (500 mcg) by mouth every 12 hours. 180 capsule 3 4 04/22/20 25 Active spironolactone (Aldactone) 25 mg tabletIndications :Essential hypertension, benign Take 1 tablet (25 mg) by mouth once daily. 90 tablet 2 4 04/22/20 25 Active amLODIPine (Norvasc) 10 mg tabletIndications :Essential hypertension, benign Take 1 tablet (10 mg) by mouth once daily. 90 tablet 3 4 06/07/20 25 Active nebivolol (Bystolic) 5 mg tabletIndications :CHF (NYHA class II, ACC/AHA stage C) (Multi),Essential hypertension, benign Take 1 tablet (5 mg) by mouth once daily. 90 tablet 3 4 06/07/20 25 Active Xarelto 20 mg tabletIndications :Paroxysmal atrial fibrillation (Multi) Take 1 tablet (20 mg) by mouth once daily. 90 tablet 3 4 06/22/20 25 Active atorvastatin (Lipitor) 40 mg tabletIndications :ASHD (arteriosclerotic heart disease),Dyslipid emia Take 1 tablet (40 mg) by mouth once daily at bedtime. 90 tablet 3 5 10/26/19 26 Active nitroglycerin (Nitrostat) 0.4 mg SL tabletIndications :Angina pectoris Place 1 tablet (0.4 mg) under the tongue every 5 minutes if needed for chest pain. May repeat dose every 5 minutes for up to 3 doses total. 25 tablet 3 5 11/11/19 26 Active ezetimibe (Zetia) 10 mg tabletIndications :Coronary angioplasty status,Dyslipidem ia TAKE 1 TABLET BY MOUTH ONCE DAILY 90 tablet 3 5 Active Active Problems Problem Noted Date Diagnosed Date BMI 40.0-44.9, adult (Multi) 11/10/2024 S/P ablation of atrial fibrillation 11/10/2024 Angina pectoris 11/10/2024 Stented coronary artery 10/12/2024 PA (myocardial infarction) (Multi) 10/12/2024 SOB (shortness of breath) 10/12/2024 Anticoagulant long-term use 10/12/2024 Atrial fibrillation, persistent (Multi) 09/07/19 25 ASHD (arteriosclerotic heart disease) 09/09/2023 CHF (NYHA class II, ACC/AHA stage C) (Multi) Coronary angioplasty status 09/09/2023 Hyperlipidemia 09/09/2023 Essential hypertension, benign 09/09/2023 Ischemic cardiomyopathy 09/09/2023 SOPHIE (obstructive sleep apnea) 09/09/2023 Paroxysmal atrial fibrillation (Multi) 4 High risk medication use 09/09/2023 Former smoker 09/09/2023 Resolved Problems Problem Noted Date Diagnosed Date Resolved Date BMI 37.0-37.9, adult 06/07/2024 025 Encounters Date Type Department Care Team Description 02/08/2025 Travel 02/07/2025 Scanned Document [facility] [address] [place] [place] [address] Scanning, Generic Provider 12/06/[address] [place] [address] [place] [phone] Samantha Pardo LPN Results 12/02/2024 10:22 AM EDT - 12/02/2024 11:59 PM EDT Hospital Encounter [address] [facility] [address] [place] [phone] Discharge Disposition: Home 12/02/2024 10:21 AM EDT Hospital Encounter [address] [place] [address] [place] [phone] Discharge Disposition: Home 12/01/2024 10:39 AM EDT - 12/01/2024 11:59 PM EDT Hospital Encounter [place] [address] [place] [phone] Discharge Disposition: Home 12/01/2024 10:39 AM EDT - 12/01/2024 11:59 PM EDT Hospital Encounter [address] [phone] Discharge Disposition: Home 12/01/2024 10:30 AM EDT - 12/01/2024 10:38 AM EDT Hospital Encounter [place] [address] [place] [phone] ASHD (arteriosclerotic heart disease); Angina pectoris; Ischemic cardiomyopathy; Myocardial infarction, unspecified PA type, unspecified artery (Multi) Discharge Disposition: Home 12/01/2024 Travel 11/25/2024 Travel 11/24/[address] [place] [address] [place] [phone] Marie Rodgers MD ASHD (arteriosclerotic heart disease); Coronary angioplasty status; Dyslipidemia 11/24/2024 Travel from Last 3 Months Family History Medical History Relation Name Comments Hypertension Father 1 cerebrovascular accident Father 1 heat valve replaced Father 1 myocardial infarction Father 1 pacemaker Father 1 Relation Name Status Comments Father 1 Father 2 [employer] Social History Tobacco Use Types Packs/Day Years Used Date Smoking Tobacco: Former Cigarettes 0.5 14.9 0 10/04/1984 - 08/11/2009 Smokeless Tobacco: Never Alcohol Use Standard Drinks/Week Comments Yes 6 (1 standard drink = 0.6 oz pur e alcohol) 2-3 drinks daily PHQ-2 Answer Date Recorded Patient Health Questionnaire-2 Score 0 08/16/2024 Sex and Gender Information Value Date Recorded Sex Assigned at Not on file Legal Sex Male 3:36 AM EST Gender Identity Not on file Sexual Orientation Not on file Last Filed Vital Signs Vital Sign Reading Time Taken Comments Blood Pressure 128/72 12/01/2024 11:01 AM EDT Pulse 67 12/01/2024 11:01 AM EDT Temperature 36.6 C (97.9 F) 10/12/2024 4:58 PM EST Respiratory Rate 18 10/12/2024 4:58 PM EST Oxygen Saturation 100% 10/12/2024 4:58 PM EST Inhaled Oxygen Concentration - - Weight 119 kg (263 lb 6.4 oz) 11/10/2024 3:51 PM EDT Height 172.7 cm (5' 8 ) 11/10/2024 3:51 PM EDT Body Mass Index 40.05 11/10/2024 3:51 PM EDT Plan of Treatment Upcoming Encounters Date Type Department Care Team (Late st Contact Info) Description 04/22/2025 2:20 PM EDT Office Visit [facility] [address] [phone] Marie Rodgers MD [address] [facility] [place] [address] Health Maintenance Due Date Last Done Comments CT Colonography 1965 Creatinine Level 1965 FIT-DNA (Cologuard) 1965 FIT 1965 HIV Screening 1965 Lipid Panel 1965 Potassium Level 1965 Sigmoidoscopy 1965 Yearly Adult Physical 1965 MMR Vaccines (1 of 1 - Standard series) 1965 Diabetes Screening 1982 Hepatitis C Screening 1982 Pneumococcal Vaccine (1 of 2 - PCV) 1983 Zoster Vaccines (1 of 2) 2014 Echocardiogram 11/06/2023 11/05/2022, 11/05/2022, 03/28/2022 COVID-19 Vaccine (1 - 2023-2 5 season) 2024 RSV High Risk: (Elderly (60+ ) or Population) (1 - Risk 60-74 years 1-dose series) 2024 Influenza Vaccine (#1) 2025 Colonoscopy 01/29/2028 01/28/2018 Colorectal Cancer Screening 01/29/2028 DTaP/Tdap/Td Vaccines (3 - T d or Tdap) 09/19/2033 09/19/2023, 05/16/2020 HIB Vaccines Aged Out No longer eligi ble based on patient's age to complete this topic HPV Vaccines (No Doses Required) Completed Hepatitis A Vaccines Aged Out No long er eligible based on patient's age to complete this topic Hepatitis B Vaccines Aged Out No long er eligible based on patient's age to complete this topic IPV Vaccines Aged Out No longer eligi ble based on patient's age to complete this topic Meningococcal Vaccine Aged Out No ryan mila eligible based on patient's age to complete this topic Rotavirus Vaccines Aged Out No longer eligible based on patient's age to complete this topic Procedures Procedure Name Priority Date/Time Associated Diagnosis Comments STRESS TEST, REGADENOSON W MYOCARDIAL PERFUSION SPECT (MULTI STUDY) Routine 12/02/2024 11:29 AM EDT ASHD (arteriosclerotic heart disease) Angina pectoris Ischemic cardiomyopathy Myocardial infarction, unspecified PA type, unspecified artery (Multi) ECHOCARDIOGRAM 11/05/2022 12:43 PM EDT from Last 3 Months or Most Recently Relevant to Health Maintenance Results * STRESS TEST, REGADENOSON W MYOCARDIAL PERFUSION SPECT (MULTI STUDY) (12/02/2024 11:29 AM EDT) Anatomical Region Laterality Modality Nuclear Medicine 12/02/2024 1:20 PM EDT 12/02/2024 1:20 PM EDT Impressions 12/02/2024 1:18 PM EDT Normal Lexiscan Myoview cardiac perfusion stress test. [...] Marie Rodgers 12/02/2024 1:18 PM Dictation workstation: [id number] Narrative 12/02/2024 1:18 PM EDT Interpreted By: Marie Rodgers and Giannuzzi Michael STUDY: MYOCARDIAL PERFUSION STRESS TEST WITH LEXISCAN Performing facility: [facility], [address] [place] [address], [address], [address] Provider: Marie Rodgers MD, FACC PCP: Dr. Ame Queen Supervising provider: Marie Rodgers MD, FACC INDICATION: Signs/Symptoms:angina, history of PA. ,I25.10 Atherosclerotic heart disease of [place] coronary artery without angina pectoris,I20.9 Angina pectoris, unspecified,I25.5 Ischemic cardiomyopathy,I21.9 Acute myocardial infarction, unspecified HISTORY: Gender: M; Age: 59 y/o ; Height: HT 172.7 cm cm; Weight: WT 119.477 kg kg. High Cholesterol; CAD; Previous PA 2008; HTN; Arrhythmias;A-fib Chest Pain; SOB; ICM CHF Quit smoking 25 years ago. Cardiac catheterization on 2008. PTCA on 2008. COMPARISON: Previous nuclear testing completed at [facility]. ACCESSION NUMBER(S): [id number] ORDERING CLINICIAN: MARIE RODGERS TECHNIQUE: TWO DAY [...] There was evidence of inferoapical attenuation artifact. Procedure Note Marie Rodgers MD - 12/02/2024 Interpreted By: Marie Rodgers and Giannuzzi Michael STUDY: MYOCARDIAL PERFUSION STRESS TEST WITH LEXISCAN Performing facility: [facility], [address] [place] [address], [address], [address] Provider: Marie Rodgers MD, [facility] PCP: Dr. Ame Queen Supervising provider: Marie Rodgers MD, [facility] INDICATION: Signs/Symptoms:angina, history of PA. ,I25.10 Atherosclerotic heart disease of [place] coronary artery without angina pectoris,I20.9 Angina pectoris, unspecified,I25.5 Ischemic cardiomyopathy,I21.9 Acute myocardial infarction, unspecified HISTORY: Gender: M; Age: 59 y/o ; Height: HT 172.7 cm cm; Weight: WT 119.477 kg kg. High Cholesterol; CAD; Previous PA 2008; HTN; Arrhythmias;A-fib Chest Pain; SOB; ICM CHF Quit smoking 25 years ago. Cardiac catheterization on 2008. PTCA on 2008. COMPARISON: Previous nuclear testing completed at [facility]. ACCESSION NUMBER(S): [id number] ORDERING CLINICIAN: MARIE RODGERS TECHNIQUE: TWO DAY [...] Marie Rodgers 12/02/2024 1:18 PM Dictation workstation: [id number] us Marie Rodgers MD CV STRESS PROCEDURES Final R esult * Echocardiogram (11/05/2022 12:43 PM EDT) 11/05/2022 12:4 3 PM EDT Narrative SYNGO - 11/05/2022 7:51 PM EDT [address], [address], [place] [address] TRANSTHORACIC ECHOCARDIOGRAM REPORT Patient Name: OSVALDO CONTI Reading Physician: [id number] Marie Rodgers MD, [facility] Study Date: 11/05/2022 Referring MARIE RODGERS Physician: MRN/PID: [id number] PCP: Vicente Queen Accession/Order#: [id number] [facility] Location: Date of : 1965 Fellow: Gender: M Nurse: Anup Pearce RN Admit Date: Hand Spinner: Jessika Bateman RDCS, RVT Height: 175.26 cm CC Report to: Weight: 111.59 kg Study Type: Echocardiogram BSA: 2.26 m2 Blood Pressure: 136 /66 mmHg Diagnosis/ICD: I48.0-Paroxysmal atrial fibrillation; I50.9-Heart failure, unspecified Indication: CAD, PTCA-2009, HTN, Former Smoker, Obesity, SOPHIE, Ischemic Cardiomyopathy, Daily ETOH Procedure/CPT: Echo Limited-51449 Study Detail: The following Echo studies were performed: 2D and M-Mode. Optison used as a contrast agent for endocardial border definition. Total contrast used for this procedure was 0.7 mL via IV push. PHYSICIAN INTERPRETATION: Left Ventricle: Left ventricular systolic function is normal, with an estimated ejection fraction of 60%. There are no regional wall motion abnormalities. The left ventricular cavity size is normal. Left ventricular diastolic filling was not assessed. Left Atrium: The left atrium is upper limits of normal in size. Right Ventricle: The right ventricle is normal in size. There is normal right ventricular global systolic function. Right Atrium: The right atrium is normal in size. Aortic Valve: The aortic valve is trileaflet. Aortic valve regurgitation was not assessed. Mitral Valve: The mitral valve is normal in structure. Mitral valve regurgitation was not assessed. Tricuspid Valve: The tricuspid valve is structurally normal. Tricuspid regurgitation was not assessed. Pulmonic Valve: The pulmonic valve is not well visualized. The pulmonic valve regurgitation was not assessed. Pericardium: There is no pericardial effusion noted. Aorta: The aortic root is normal. Systemic Veins: The inferior vena cava appears to be of normal size. In comparison to the previous echocardiogram(s): When compared to a study from 03/28/2022 the ejection fraction has increased from 30% up to 60%. CONCLUSIONS: 1. Left ventricular systolic function is normal with a 60% estimated ejection fraction. 2. When compared to a study from 03/28/2022 the ejection fraction has increased from 30% up to 60%. QUANTITATIVE DATA SUMMARY: 2D MEASUREMENTS: Normal Ranges: Ao Root d: 3.20 cm (2.0-3.7cm) LAs: 4.00 cm (2.7-4.0cm) RVIDd: 3.60 cm (0.9-3.6cm) IVSd: 1.10 cm (0.6-1.1cm) LVPWd: 1.00 cm (0.6-1.1cm) LVIDd: 5.50 cm (3.9-5.9cm) LVIDs: 3.80 cm LV Mass Index: 100.8 g/m2 LV % FS 30.9 % LV SYSTOLIC FUNCTION BY 2D PLANIMETRY (MOD): Normal Ranges: EF-A4C View: 52.8 % (>=55%) AORTIC VALVE: Normal Ranges: LVOT Diameter: 2.30 cm (1.8-2.4cm) [id number] Marie Rodgers MD, [facility] Electronically signed on 11/05/2022 at 7:51:49 PM Final Procedure Note Marie Rodgers MD - 11/05/[address], [place] [address] TRANSTHORACIC ECHOCARDIOGRAM REPORT Patient Name: OSVALDO Lara Physician: [id number] Marie Tillman [facility] Study Date: 11/05/2022 Referring MARIE RODGERS Physician: MRN/PID: [id number] PCP: Vicente Queen Accession/Order#: [id number] [facility] Location: Date of : 1965 Fellow: Gender: M Nurse: Anup Pearce RN Admit Date: Hand Spinner: Jessika Bateman RDCS,T Height: 175.26 cm CC Report to: Weight: 111.59 kg Study Type: Echocardiogram BSA: 2.26 m2 Blood Pressure: 136 /66 mmHg Diagnosis/ICD: I48.0-Paroxysmal atrial fibrillation; I50.9-Heartfailure, unspecified Indication: CAD, PTCA-2009, HTN, Former Smoker, Obesity, SOPHIE,Ischemic Cardiomyopathy, Daily ETOH Procedure/CPT: Echo Limited-[id number] Study Detail: The following Echo studies were performed: 2D and M-Mode.Optison used as a contrast agent for endocardial border definition. Total contrast used for this procedure was 0.7 mL via IV push. PHYSICIAN INTERPRETATION: Left Ventricle: Left ventricular systolic function is normal, with anestimated ejection fraction of 60%. There are no regional wall motionabnormalities. The left ventricular cavity size is normal. Leftventricular diastolic filling was not assessed. Left Atrium: The left atrium is upper limits of normal in size. Right Ventricle: The right ventricle is normal in size. There is normalright ventricular global systolic function. Right Atrium: The right atrium is normal in size. Aortic Valve: The aortic valve is trileaflet. Aortic valve regurgitationwas not assessed. Mitral Valve: The mitral valve is normal in structure. Mitral valveregurgitation was not assessed. Tricuspid Valve: The tricuspid valve is structurally normal. Tricuspidregurgitation was not assessed. Pulmonic Valve: The pulmonic valve is not well visualized. The pulmonicvalve regurgitation was not assessed. Pericardium: There is no pericardial effusion noted. Aorta: The aortic root is normal. Systemic Veins: The inferior vena cava appears to be of normal size. In comparison to the previous echocardiogram(s): When compared to a studyfrom 03/28/2022 the ejection fraction has increased from 30% up to 60%. CONCLUSIONS: 1. Left ventricular systolic function is normal with a 60% estimatedejection fraction. 2. When compared to a study from 03/28/2022 the ejection fraction hasincreased from 30% up to 60%. QUANTITATIVE DATA SUMMARY: 2D MEASUREMENTS: Normal Ranges: Ao Root d: 3.20 cm (2.0-3.7cm) LAs: 4.00 cm (2.7-4.0cm) RVIDd: 3.60 cm (0.9-3.6cm) IVSd: 1.10 cm (0.6-1.1cm) LVPWd: 1.00 cm (0.6-1.1cm) LVIDd: 5.50 cm (3.9-5.9cm) LVIDs: 3.80 cm LV Mass Index: 100.8 g/m2 LV % FS 30.9 % LV SYSTOLIC FUNCTION BY 2D PLANIMETRY (MOD): Normal Ranges: EF-A4C View: 52.8 % (>=55%) AORTIC VALVE: Normal Ranges: LVOT Diameter: 2.30 cm (1.8-2.4cm) [id number] Marie Rodgers MD, FACC Electronically signed on 11/05/2022 at 7:51:49 PM Final us Marie Rodgers MD CV ECHO PROCEDURES Final Res ult SYNGO from Last 3 Months or Most Recently Relevant to Health Maintenance Care Teams Lathe Set Up Person Relationship Specialty Start Date End Date Vicente Queen MD [address] [place] [phone] PCP - General 07/02/21
--- OUTSIDE RECORDS SUMMARY | 2025-02-19 12:33 | XMS_ITS | Encounter Summary ---
Author Organization [facility] Address [address] [place] [address] Phone Care Team Providers Care Warehouse Engineer Name Role Phone Vicente Queen MD Primary Care Provider Encounter Details Date Type Department Care Team (Late st Contact Info) Description 03/19/2023 Scanned Document [facility] [address] [place] [address] Conversion, Onbase Social History Tobacco Use Types [...] Description 04/22/2025 2:20 PM EDT Office Visit [facility] 703 [facility] [address] [place] [address] Joseph Rodgers MD 703 [facility] [address] [place], [place] [phone] documented as of this encounter Procedures Procedure Name Priority Date/Time Associated Diagnosis Comments ELECTROCARDIOGRAM RHYTHM STRIP 03/19/2023 documented in this encounter Results * ELECTROCARDIOGRAM RHYTHM STRIP (03/19/2023) Narrative 03/19/2023 Ordered by an unspecified provider. us Onbase Conversion ECG ORDERABLES Final Result documented in this encounter Visit Diagnoses Not on filedocumented in this encounter Care Teams Warehouse Engineer Relationship Specialty Start Date End Date Vicente Queen MD [address] [place] [phone] PCP - General 07/02/21 documented as of this encounter
--- OUTSIDE RECORDS SUMMARY | 2025-02-19 12:33 | XMS_ITS | Encounter Summary ---
Author Organization [facility] Address [address] [place] [address] Phone Care Team Providers Care Hourly Manager Name Role Phone Vicente Queen MD Primary Care Provider Encounter Details Date Type Department Care Team (Late st Contact Info) Description 05/24/2024 Scanned Document [facility] [address] [place] [phone] Scanning, Generic Provider Social History Tobacco Use [...] Description 04/22/2025 2:20 PM EDT Office Visit [facility] 703 [facility] [address] [place] [address] Joseph Rodgers MD 703 [facility] [address] [place] [address] documented as of this encounter Procedures Procedure Name Priority Date/Time Associated Diagnosis Comments OUTSIDE IMAGING SCAN 05/24/2024 documented in this encounter Results * OUTSIDE IMAGING SCAN (05/24/2024) Anatomical Region Laterality Modality Other Narrative 05/24/2024 Ordered by an unspecified provider. us Generic Provider Scanning OUTSIDE SCAN Final Result documented in this encounter Visit Diagnoses Not on filedocumented in this encounter Care Teams Hourly Manager Relationship Specialty Start Date End Date Vicente Queen MD [address] [place] [address] PCP - General 07/02/21 documented as of this encounter
--- OUTSIDE RECORDS SUMMARY | 2025-02-19 12:33 | XMS_ITS | Encounter Summary ---
Author Organization [facility] Address [address] [place] [address] Phone Care Team Providers Care Help Desk Consultant Name Role Phone Vicente Queen MD Primary Care Provider Encounter Details Date Type Department Care Team (Late st Contact Info) Description 03/26/2021 Orders Only [facility] [address] [place] [address] Conversion, Onbase Social History Tobacco Use Types [...] Description 04/22/2025 2:20 PM EDT Office Visit [facility] 703 [facility] [address] [place] [address] Joseph Rodgers MD 703 [facility] [address] [place], [place] [phone] Scheduled Orders Name Type Priority Associated Diagnoses Orde r Schedule OUTSIDE LAB SCAN Lab Ordered: 03/26/2021 documented as of this encounter Visit Diagnoses Not on filedocumented in this encounter Care Teams Help Desk Consultant Relationship Specialty Start Date End Date Vicente Queen MD [address] [place] [address] PCP - General 07/02/21 documented as of this encounter
--- OUTSIDE RECORDS SUMMARY | 2025-02-19 12:33 | XMS_ITS | Encounter Summary ---
Author Organization [facility] Address [address] [place] [address] Phone Care Team Providers Care Pharmacy Technologist Name Role Phone Vicente Queen MD Primary Care Provider Encounter Details Date Type Department Care Team (Late st Contact Info) Description 04/08/2023 Scanned Document [facility] [address] [place] [address] Conversion, Onbase Social History Tobacco Use Types [...] Description 04/22/2025 2:20 PM EDT Office Visit [facility] 703 [facility] [address] [place] [address] Joseph Rodgers MD 703 [facility] [address], [address] [place], [place] [phone] documented as of this encounter Procedures Procedure Name Priority Date/Time Associated Diagnosis Comments ELECTROCARDIOGRAM RHYTHM STRIP 04/08/2023 documented in this encounter Results * ELECTROCARDIOGRAM RHYTHM STRIP (04/08/2023) Narrative 04/08/2023 Ordered by an unspecified provider. us Onbase Conversion ECG ORDERABLES Final Result documented in this encounter Visit Diagnoses Not on filedocumented in this encounter Care Teams Pharmacy Technologist Relationship Specialty Start Date End Date Vicente Queen MD [address] [place] [phone] PCP - General 07/02/21 documented as of this encounter
--- OUTSIDE RECORDS SUMMARY | 2025-02-19 12:33 | XMS_ITS | Encounter Summary ---
Author Organization [facility] Address [address] [place] [address] Phone Care Team Providers Care Frame Tender Name Role Phone Vicente Queen MD Primary Care Provider Encounter Details Date Type Department Care Team (Late st Contact Info) Description 04/02/2023 Scanned Document [facility] [address] [place] [address] Conversion, Onbase Social History Tobacco Use Types [...] Description 04/22/2025 2:20 PM EDT Office Visit [facility] [address] [facility] [address] [place] [address] Joseph Rodgers MD 7[address] [facility] [address] [place], [place] [phone] documented as of this encounter Visit Diagnoses Not on filedocumented in this encounter Care Teams Frame Tender Relationship Specialty Start Date End Date Vicente Queen MD [address] [place] [phone] PCP - General 07/02/21 documented as of this encounter
--- OUTSIDE RECORDS SUMMARY | 2025-02-19 12:33 | XMS_ITS | Encounter Summary ---
Author Organization [facility] Address [address] [place] [address] Phone Care Team Providers Care Construction Equipment Overhauler Name Role Phone Vicente Queen MD Primary Care Provider Encounter Details Date Type Department Care Team (Latest Contact Info) Description 02/08/2025 Travel Social History Tobacco Use Types Packs/Day Years [...] Description 04/22/2025 2:20 PM EDT Office Visit [facility] [facility] [address] [place] [address] Joseph Rodgers MD [address] [facility] [address] [place], [place] [id number] documented as of this encounter Visit Diagnoses Not on filedocumented in this encounter Additional Health Concerns Assessment Noted Time A fall risk assessment has been complete d for the patient 08/16/2024 10:51 AM EST documented as of this encounter Care Teams Construction Equipment Overhauler Relationship Specialty Start Date End Date Vicente Queen MD [address] [place] [address] PCP - General 07/02/21 documented as of this encounter
--- OUTSIDE RECORDS SUMMARY | 2025-02-19 12:33 | XMS_ITS | Encounter Summary ---
Author Organization [facility] Address [address] [place] [address] Care Team Providers Care Chemical Plant Operator Name Role Phone Unallocated, Noms Provider [facility] Encounter Details Date Type Department Care Team (Late st Contact Info) Description 02/07/2025 Orders Only [facility] [address] [place] [address] Vicente Queen MD [address] [place] [address] Other elevated white blood cell (WBC) count (Primary Dx); Abnormal thyroid function test; Chronic fatigue Social History Tobacco Use Types Packs/Day Years [...] on file documented as of this encounter Progress Notes * Vicente Queen MD - 02/07/2025 12:30 PM EDT Orders placed documented in this encounter Plan of Treatment Scheduled Orders Name Type Priority Associated Diagnoses Order Schedule Sedimentation rate, automated Lab Routine Other elevated white blood cell (WBC) count Chronic fatigue Expected: 02/07/2025 (Approximate), Expires: 02/07/2026 CBC and differential Lab Routine Other elevated white blood cell (WBC) count Chronic fatigue Expected: 02/07/2025 (Approximate), Expires: 02/07/2026 Peripheral blood smear Pathology and Cytology Routine Other elevated white blood cell (WBC) count Chronic fatigue Expected: 02/07/2025 (Approximate), Expires: 02/07/2026 Thyroglobulin Antibody Lab Routine Abnormal thyroid function test Chronic fatigue Expected: 02/07/2025 (Approximate), Expires: 02/07/2026 Thyroid peroxidase antibody Lab Routine Abnormal thyroid function test Chronic fatigue Expected: 02/07/2025 (Approximate), Expires: 02/07/2026 Thyroid stimulating immunoglobulin Lab Routine Abnormal thyroid function test Chronic fatigue Expected: 02/07/2025 (Approximate), Expires: 02/07/2026 documented as of this encounter Visit Diagnoses Diagnosis Other elevated white blood cell (WBC) count- Primary Abnormal thyroid function test Nonspecific abnormal results of thyroid function study Chronic fatigue Other malaise and fatigue documented in this encounter Care Teams Chemical Plant Operator Relationship Specialty Start Date End Date Unallocated, Noms Provider, [address] [place] [address] PCP - General Family Medicine 05/24/24 documented as of this encounter
--- OUTSIDE RECORDS SUMMARY | 2025-02-19 12:33 | XMS_ITS | Encounter Summary ---
Author Organization [facility] Address [address] [place] [address] Phone Care Team Providers Care Assistant Family Teacher Name Role Phone Vicente Queen MD Primary Care Provider Encounter Details Date Type Department Care Team (Late st Contact Info) Description 03/21/2024 Scanned Document [facility] [address] [place] [id number] Scanning, Generic Provider Social History Tobacco Use [...] Description 04/22/2025 2:20 PM EDT Office Visit [facility] [address] [facility] [address] [place] [address] Joseph Rodgers MD [address] [facility], [address] [place] [address] documented as of this encounter Visit Diagnoses Not on filedocumented in this encounter Care Teams Assistant Family Teacher Relationship Specialty Start Date End Date Vicente Queen MD [address] [place] [address] PCP - General 07/02/21 documented as of this encounter
--- OUTSIDE RECORDS SUMMARY | 2025-02-19 12:33 | XMS_ITS | Encounter Summary ---
Author Organization [facility] Address [address] [place] [address] Phone Care Team Providers Care Social Science Research Assistant Name Role Phone Vicente Queen MD Primary Care Provider Encounter Details Date Type Department Care Team (Late st Contact Info) Description 05/31/2024 Scanned Document [facility] [address] [place] [phone] Scanning, Generic Provider Social History Tobacco Use [...] Description 04/22/2025 2:20 PM EDT Office Visit [facility] [address] [facility] [address] [place] [address] Joseph Rodgers MD [address] [facility] [address] [place] [address] documented as of this encounter Visit Diagnoses Not on filedocumented in this encounter Care Teams Social Science Research Assistant Relationship Specialty Start Date End Date Vicente Queen MD [address] [place] [address] PCP - General 07/02/21 documented as of this encounter
--- OUTSIDE RECORDS SUMMARY | 2025-02-19 12:33 | XMS_ITS | Encounter Summary ---
Author Organization [facility] Address [address] [place] [address] Phone Care Team Providers Care Rn Med Surg Name Role Phone Vicente Queen MD Primary Care Provider Encounter Details Date Type Department Care Team (Late st Contact Info) Description 02/07/2025 Scanned Document [facility] [address] [place] [phone] Scanning, Generic Provider Social History Tobacco Use [...] Description 04/22/2025 2:20 PM EDT Office Visit [place] [id number] [facility] [address] [place] [address] Joseph Rodgers MD [address]03 [facility] [address] [place] [address] documented as of this encounter Visit Diagnoses Not on filedocumented in this encounter Additional Health Concerns Assessment Noted Time A fall risk assessment has been complete d for the patient 08/16/2024 10:51 AM EST documented as of this encounter Care Teams Rn Med Surg Relationship Specialty Start Date End Date Vicente Queen MD [address] [place] [phone] PCP - General 07/02/21 documented as of this encounter
[2025-02-19 12:48] LABS: Hematocrit 41.2 % (42.0-54.0); Hemoglobin 14.7 g/dL (14.0-18.0); Immature Granulocytes Abs Auto 0.03 10^3/uL (0.00-0.03); Immature Granulocytes Pct Auto 0.2 % (0.0-0.5); Lymphocytes Absolute Auto 2.2 10^3/uL (1.2-3.8); Mean Corpuscular HGB Conc 35.7 g/dL (29.9-35.2); Mean Corpuscular Hemoglobin 33.6 pg (25.9-34.0); Mean Corpuscular Volume 94.1 fL (80.0-94.0); Platelet Count 227 10^3/uL (150-450); Red Blood Count 4.38 10^6/uL (4.70-6.10); White Blood Count 12.2 10^3/uL (4.0-11.0)
--- NOTE | 2025-02-19 13:01 | ED.GENADUL1 ---
HPI HPI - General Adult General Chief complaint: Abdominal Pain Stated complaint: WEAKNESS BACK PAIN Time Seen by Provider: 02/19/25 12:26 Source: patient and family Mode of arrival: walk-in Limitations: no limitations History of Present Illness HPI narrative: The patient is a 59-year-old male who presents to the emergency department today for evaluation concerns for back and abdominal pain. He endorses the symptoms have been ongoing since August 2024. He reports over the past 3 days the pain to his back radiates across his lower abdomen seems to be more persistent and worse. He reports it is worse with movement and denies any colicky pain. He reports a history of kidney stones and states his pain does not feel similar to that. No symptoms of nausea or vomiting. No urinary symptoms. He denies any saddle anesthesia or concerns with bowel/bladder function. No paresthesias, weakness, loss of movement to lower extremities. Historically no fevers or malignancy. He denies any abdominal or surgical history other than an ablation 08/2024 Related Data Home Medications ?Medication ?Instructions ?Recorded ?Confirmed amlodipine 10 mg tablet 10 mg PO DAILY 02/19/25 02/19/25 atorvastatin 40 mg tablet 40 mg PO .QHS 02/19/25 02/19/25 dofetilide 250 mcg capsule 500 mcg PO BID 02/19/25 02/19/25 ezetimibe 10 mg tablet 10 mg PO DAILY 02/19/25 02/19/25 losartan 50 mg tablet 50 mg PO BID 02/19/25 02/19/25 metoprolol succinate 50 mg 50 mg PO DAILY 02/19/25 02/19/25 tablet,extended release 24 hr nebivolol 5 mg tablet 5 mg PO DAILY 02/19/25 02/19/25 nitroglycerin 0.4 mg sublingual 0.4 mg buccal Q5M PRN chest pain 02/19/25 02/19/25 tablet rivaroxaban 20 mg tablet (Xarelto) 20 mg PO Q24H 02/19/25 02/19/25 spironolactone 25 mg tablet 25 mg PO DAILY 02/19/25 02/19/25 Previous Rx's ?Medication ?Instructions ?Recorded methylprednisolone 4 mg tablets in 4 mg PO QID 4 doses #21 ea 02/19/25 a dose pack (Medrol (Ryne)) Allergies Allergy/AdvReac Type Severity Reaction Status Date / Time No Known Drug Allergies Allergy Verified 02/19/25 12:31 PFSH PFSH Social History Little interest or pleasure in doing things: not at all Feeling down, depressed, or hopeless: not at all Exam Narrative Exam Narrative: Constituational: Awake/ alert, no apparent distress, well hydrated, obese HENMT: normocephalic, external ears normal, moist oral mucous membranes and oropharynx normal Eyes: EOMI and conjunctivae normal Neck: ROM intact Chest: inspection of chest normal Respiratory: Normal respiratory effort, clear to auscultation bilaterally Cardio: regular rate and regular rhythm GI: +mil discomfort to LMQ/ LLQ and L periumbillical region, abdomen is otherwise obese, soft to palpation and non-tender Back: + mild lateral L lumbar region discomfort, no vertebral tenderness, ROM intact MSK: ROM intact, +NVI Skin: no rashes or petechiae Neuro: no focal deficits Psych: mental status grossly normal Constitutional Vital Signs, click to edit/add: Last Vital Signs Temp 99.2 F 02/19/25 12:24 Pulse 72 02/19/25 12:24 Resp 02/19/25 12:24 BP 159/79 H 02/19/25 12:24 Pulse Ox 98 02/19/25 12:24 O2 Del Method Room Air 02/19/25 12:24 Course Vital Signs Vital signs: Vital Signs Temperature 99.2 F 02/19/25 12:24 Pulse Rate 72 02/19/25 12:24 Respiratory Rate 20 02/19/25 12:24 Blood Pressure 159/79 H 02/19/25 12:24 Pulse Oximetry 98 02/19/25 12:24 Oxygen Delivery Method Room Air 02/19/25 12:24 Temperature 99.2 F 02/19/25 12:24 Pulse Rate 72 02/19/25 12:24 Respiratory Rate 02/19/25 12:24 Blood Pressure 159/79 H 02/19/25 12:24 Pulse Oximetry 98 02/19/25 12:24 Oxygen Delivery Method Room Air 02/19/25 12:24 Medical Decision Making MDM Narrative Medical decision making narrative: The patient is a well-appearing 59-year-old male who presented to the emergency department today for evaluation concerns for focal area of pain to the left lumbar region of his back with radiation over mostly left lower quadrant with question to left hip. Initial examination vital signs overall stable. No acute abdominal findings on exam. Patient does have point tenderness to mostly SI region of the back. Otherwise no concerning neurovascular motor findings on exam. Patient with history of kidney stones despite saying his pain did not feel similar to that. He was offered analgesic medications in the emergency room including Tylenol and ibuprofen which she declined as he had mentioned his pain was not that significant. Urinalysis obtained that is negative for UTI and hematuria. Labs obtained that were significant for mild leukocytosis with WBCs 12 otherwise no significant anemia or thrombocytopenia. Electrolytes including renal and affect function stable. Normal lipase. CT imaging of abdomen and pelvis without acute findings however noted to have degenerative changes to lumbar spine and hips in addition to SI joints. Discussed this with the patient including recommendations for supportive care of likely arthralgia to the back and hip. Advised on follow-up with patient's primary care provider for reevaluation. Will discharge home with Medrol Dosepak. Discussed signs and symptoms of any worsening condition and when to consider reevaluation by the emergency department. Patient verbalized an understanding of this and is agreeable with the plan to be discharged home. Medical Records Medical records reviewed: Yes I reviewed the patient's medical records Lab Data Lab results reviewed: Yes I reviewed the patient's lab results Labs: Lab Results 02/19/25 02/19/25 Range/Units 12:35 13:30 WBC 12.2 H (4.0-11.0) 10^3/uL RBC 4.38 L (4.70-6.10) 10^6/uL Hgb 14.7 (14.0-18.0) g/dL Hct 41.2 L (42.0-54.0) % MCV 94.1 H (80.0-94.0) fL MCH 33.6 (25.9-34.0) pg MCHC 35.7 H (29.9-35.2) g/dL RDW 11.6 (11.0-15.0) % Plt Count 227 (150-450) 10^3/uL MPV 10.5 (9.5-13.5) fL Neut % (Auto) 71.4 (43.0-75.0) % Lymph % (Auto) 18.0 L (20.5-60.0) % Creek % (Auto) 7.6 (1.7-12.0) % Eos % (Auto) 2.3 (0.9-7.0) % Baso % (Auto) 0.5 (0.2-2.0) % Neut # (Auto) 8.7 H (1.4-6.5) 10^3/uL Lymph # (Auto) 2.2 (1.2-3.8) 10^3/uL Creek # (Auto) 0.9 H (0.3-0.8) 10^3/uL Eos # (Auto) 0.3 (0.0-0.7) 10^3/uL Baso # (Auto) 0.1 (0.0-0.1) 10^3/uL Abs Immat Gran (auto) 0.03 (0.00-0.03) 10^3/uL Imm/Tot Granulo (auto) 0.2 (0.0-0.5) % Sodium 138 (136-145) mmol/L Potassium 4.1 (3.5-5.1) mmol/L Chloride 102 (98-107) mmol/L Carbon Dioxide 26.4 (21.0-32.0) mmol/L Anion Gap 13.7 BUN 21.0 H (7.0-18.0) mg/dL Creatinine 1.11 (0.70-1.30) mg/dL Est GFR ( Amer) >60 (>=60 mL/min/1.73m^2) Est GFR (Non-Af Amer) >60 (>=60 mL/min/1.73m^2) BUN/Creatinine Ratio 18.9 Glucose 145 H (74-106) mg/dL Calcium 9.1 (8.5-10.1) mg/dL Total Bilirubin 0.9 (0.2-1.0) mg/dL AST 22 (15-37) U/L ALT 37 (16-63) U/L Alkaline Phosphatase 86 (46-116) U/L Total Protein 7.2 (6.4-8.2) g/dL Albumin 3.1 L (3.4-5.0) g/dL Globulin 4.1 g/dL Albumin/Globulin Ratio 0.8 Lipase 67.0 (16.0-77.0) U/L Urine Color Yellow (YELLOW) Urine Clarity Clear (CLEAR) Urine pH 6.0 (5.0-9.0) Ur Specific [place] 1.015 (1.005-1.025) Urine Protein Negative (NEG/TRACE) mg/dL Urine Glucose (UA) Negative (NEGATIVE) mg/dL Urine Ketones Negative (NEGATIVE) mg/dL Urine Occult Blood Negative (NEGATIVE) Urine Nitrite Negative (NEGATIVE) Urine Bilirubin Negative (NEGATIVE) Urine Urobilinogen 1.0 (0.2-1.0) EU/dL Ur Leukocyte Esterase Negative (NEGATIVE) Imaging Data CT scan - abdomen: Attestation: I have reviewed the pertinent imaging results. Radiologist's impression: ITS Impressions Abdomen/Pelvis CT 02/19/25 12:31 IMPRESSION: No bowel obstruction or obstructive uropathy. Uncomplicated colonic diverticula are noted. No renal, ureteral, or bladder stones. Impression dictated by: Rufino Wesley M.D. 02/19/2025 1:13 PM Dictation Location: [place] [address] Electronically authenticated by: [id number] Y Date: 02/19/2025 13:13 ECG Data Attestation: I personally reviewed and interpreted this ECG as follows: (SR with HR 69, no acute/ischemic changes) Discharge Plan Discharge Chief Complaint: Abdominal Pain Clinical Impression: Back pain, Abdominal pain Patient Disposition: Home, Self-Care Prescriptions / Home Meds: New methylprednisolone [Medrol (Ryne)] 4 mg tablets,dose pack 4 mg PO QID Qty: 21 0RF No Action amlodipine 10 mg tablet 10 mg PO DAILY atorvastatin 40 mg tablet 40 mg PO .QHS dofetilide 250 mcg capsule 500 mcg PO BID ezetimibe 10 mg tablet 10 mg PO DAILY losartan 50 mg tablet 50 mg PO BID metoprolol succinate 50 mg tablet extended release 24 hr 50 mg PO DAILY nebivolol 5 mg tablet 5 mg PO DAILY nitroglycerin 0.4 mg tablet, sublingual 0.4 mg buccal Q5M PRN (Reason: chest pain) Xarelto 20 mg tablet 20 mg PO Q24H spironolactone 25 mg tablet 25 mg PO DAILY Print Language: Zambian Instructions: Abdominal Pain (ED), Back Pain (ED) Additional Instructions: Recommend taking Tylenol and ibuprofen for any pain. Take Medrol Dosepak as prescribed. Ice your back in any sore areas. Please follow-up with your primary care provider for reevaluation as discussed. Referrals: DONIS ZAVALA [Primary Care Provider, Family Practice] - 1 week
[2025-02-19 13:04] LABS: Alanine Aminotransferase 37 U/L (16-63); Albumin Globulin Ratio 0.8; Albumin Level 3.1 g/dL (3.4-5.0); Alkaline Phosphatase 86 U/L (46-116); Anion Gap 13.7; Aspartate Amino Transferase 22 U/L (15-37); Blood Urea Nitrogen 21.0 mg/dL (7.0-18.0); Calcium 9.1 mg/dL (8.5-10.1); Carbon Dioxide 26.4 mmol/L (21.0-32.0); Chloride 102 mmol/L (98-107); Estimated GFR (African America >60 (>=60 mL/min/1.73m^2); Estimated GFR (Non-African Ame >60 (>=60 mL/min/1.73m^2); Globulin 4.1 g/dL; Glucose 145 mg/dL (74-106); Lipase 67.0 U/L (16.0-77.0); Potassium 4.1 mmol/L (3.5-5.1); Sodium 138 mmol/L (136-145); Total Protein 7.2 g/dL (6.4-8.2)
[2025-02-19 13:43] LABS: Glucose Urine UA NEGATIVE (NEGATIVE)
== END 2025-02-19 14:09 | disposition home or self-care (01) ==
PROVIDERS: Nurse Practitioner; Emergency Provider Emergency Medicine; Family Provider Family Medicine; PCP Family Medicine
DX: M54.50 Low back pain, unspecified (principal); R10.84 Generalized abdominal pain; K57.90 Diverticulosis of intestine, part unspecified, without perforation or abscess without bleeding
CPT/HCPCS: 36415; 51798; 74176; 80053; 81003; 83690; 85025; 93005; 99285